=== PATIENT | female | born 1970 | race Hispanic/Latino ===

== ENCOUNTER 2017-02-01 07:34 | Emergency (ER) | payer OTHER ==
[2017-02-01] MEDS ORDERED: ZOFRAN IV ONE (07:55)
--- NOTE | 2017-02-01 07:57 | Emergency Department Report ---
HPI - General Time Seen by Provider: 02/01/17 07:41 - HPI HPI: This is a 46-year-old female who presents to the emergency department by EMS from work with complaint of nausea, vomiting, chest pain, shortness of breath. The patient says she woke up with the nausea and vomiting and tried to brush it off and went work anyways. The symptoms worsened and then she developed some midsternal pain/pressure and right arm numbness. She began having some shortness of breath without any cough or wheezing. She began to feel lightheaded as if she was going to pass out, but never did. She called EMS and was brought to [facility] and received aspirin in route. She has a past medical history of remote colon cancer and obstructive sleep apnea in which she sleeps with a CPAP machine. She is not a tobacco smoker and denies any illicit drug use or abuse. She goes to [place] for her primary care needs. No recent travel or sick contacts at home. ED Past Medical Hx - Medications Home Medications: Home Medications Medication Instructions Recorded Confirmed Last Taken Type Nabumetone [Relafen] 500 mg PO QDAY 02/01/17 02/01/17 01/31/17 History ED Review of Systems ROS: Stated complaint: KEITH,N/V,CHEST PAIN Other details as noted in HPI Comment: All other systems reviewed and negative Constitutional: denies: chills, fever Eyes: denies: eye pain, eye discharge, vision change ENT: denies: ear pain, throat pain Respiratory: shortness of breath. denies: cough, wheezing Cardiovascular: chest pain. denies: palpitations Gastrointestinal: nausea, vomiting Genitourinary: denies: urgency, dysuria, discharge Musculoskeletal: denies: back pain, joint swelling Skin: denies: rash, lesions Neurological: numbness. denies: headache Physical Exam - Physical Exam Physical Exam: GENERAL: The patient is well-developed well-nourished. HEENT: Normocephalic. Atraumatic. Extraocular motions are intact. Patient has moist mucous membranes. Pupils equal reactive to light bilaterally. NECK: Supple. Trachea is midline. CHEST/LUNGS: Clear to auscultation. There is no respiratory distress noted. Chest pain is not reproducible by palpation. HEART/CARDIOVASCULAR: Regular. There is no tachycardia. There is no gallop rub or murmur. ABDOMEN: Abdomen is soft, nontender. Patient has normal bowel sounds. There is no abdominal distention. Obese habitus. SKIN: There is no rash. There is no edema. There is no diaphoresis. NEURO: The patient is awake, alert, and oriented. The patient is cooperative. The patient has no focal neurologic deficits. The patient has normal speech. MUSCULOSKELETAL: There is no tenderness or deformity. There is no limitation range of motion. There is no evidence of acute injury. ED Course - Consultations Consultation #1: I spoke with Madan regarding the patient's chest pain and need for evaluation and possible stress test. The patient has been accepted to [facility] by Dr. Scruggs and they will arrange transportation. 02/01/17 11:03 ED Medical Decision Making - Lab Data Result diagrams: 02/01/17 08:21 02/01/17 08:21 - EKG Data -: EKG Interpreted by Ca EKG shows normal: sinus rhythm, axis, intervals, QRS complexes, ST-T waves Rate: normal - EKG Data When compared to previous EKG there are: previous EKG unavailable Interpretation: normal EKG - Radiology Data Radiology results: image reviewed interpreted by me: Chest x-ray did not show any acute process. Heart is normal shape and size. No effusions. No pneumothorax. No signs of pneumonia seen. - Medical Decision Making 46-year-old female presents with acute chest pain and some right arm numbness or radiation. EKG does not show any signs of ST elevation OR or dysrhythmia. First troponin negative. D-dimer negative. Chest x-ray does not show any acute process. However the patient has never had a full cardiac workup including stress test and she continues to have some discomfort, although improved. I spoke with [facility] who will transport the patient to [facility] for further evaluation. We are currently awaiting transportation. - Differential Diagnosis OR, PE, costochondritis, GERD Critical Care Time: No Critical care attestation.: If time is entered above; I have spent that time in minutes in the direct care of this critically ill patient, excluding procedure time. ED Disposition Clinical Impression: Angina at rest, Nausea, Chest pain, rule out acute myocardial infarction Chest pain Qualifiers: Chest pain type: unspecified Qualified Code(s): R07.9 - Chest pain, unspecified Disposition: DC/TX ANOTHER TYPE HEALTHCARE Is pt being admited?: No Condition: Stable Instructions: Chest Pain (ED) Referrals: PRIMARY CARE, [Primary Care Provider] - 3-5 Days Time of Disposition: 11:05
[2017-02-01 08:35] LABS: Basophils % (Auto) 0.6 % (0.0-1.8); Hematocrit 37.1 % (30.3-42.9); Hemoglobin 12.1 gm/dl (10.1-14.3); Mean Corpuscular HGB Conc 33 % (30-34); Mean Corpuscular Hemoglobin 27 pg (28-32); Mean Corpuscular Volume 83 fl (79-97); Platelet Count 241 K/mm3 (140-440); Red Blood Count 4.47 M/mm3 (3.65-5.03); Red Cell Distribution Width 14.4 % (13.2-15.2); White Blood Count 7.3 K/mm3 (4.5-11.0)
--- NOTE | 2017-02-01 08:52 | XRay Report ---
AP CHEST: History: Chest pain. AP view of the chest demonstrates a normal mediastinal and cardiac contour with clear lungs and normal bony and soft tissue structures. IMPRESSION: Normal AP chest.
[2017-02-01 08:57] LABS: Alanine Aminotransferase 16 units/L (7-56); Albumin 3.4 g/dL (3.9-5); Alkaline Phosphatase 76 units/L (35-129); Anion Gap 18 mmol/L; Blood Urea Nitrogen 12 mg/dL (7-17); Calcium 8.6 mg/dL (8.4-10.2); Carbon Dioxide 23 mmol/L (22-30); Chloride 99.9 mmol/L (98-107); Glucose 166 mg/dL (65-100); Potassium 4.2 mmol/L (3.6-5.0); Sodium 137 mmol/L (137-145); Total Protein 6.8 g/dL (6.3-8.2)
[2017-02-01 09:03] LABS: Urine Drugs of Abuse Note Disclamer
[2017-02-01 09:16] LABS: Bilirubin,Urine NEG (Negative); Blood,Urine NEG (Negative); Ketones,Urine NEG (Negative); Leukocyte Esterase,Urine NEG (Negative); Mucus,Urine FEW /HPF; Nitrite,Urine NEG (Negative); Protein,Urine <15 mg/dL mg/dL (Negative); Urobilinogen,Urine < 2.0 mg/dL (<2.0); WBC,Urine < 1.0 /HPF (0.0-6.0)
[2017-02-01 11:33] VITALS: BP 134/96
== END 2017-02-01 12:26 | disposition other institution (70) ==
LOC: ED 07:34
DX: I20.9 Angina pectoris, unspecified (principal); R07.9 Chest pain, unspecified; R11.2 Nausea with vomiting, unspecified
CPT/HCPCS: 36415; 71010; 80053; 80307; 81001; 82550; 82553; 83690; 84484; 84703; 85025; 85379; 93005; 93010; 96374; 99285; J2405